=== PATIENT | female | born 2000 | race Two or more races ===

== ENCOUNTER 2020-10-29 14:33 | Emergency (ER) | payer OTHER ==
[~2020-10-29] VITALS: Ht 175.3 cm; Wt 69.6 kg
[2020-10-29 15:30] VITALS: BP 107/71
--- NOTE | 2020-10-29 16:38 | RAD ---
EXAM: Pelvic sonogram. HISTORY: Pelvic pain. TECHNIQUE: Sonographic imaging of the pelvis was performed. COMPARISON: None. FINDINGS: The uterus measures 7.6 x 4.2 x 3.0 cm. The endometrial stripe measures 3 mm in thickness. The ovaries are normal in size and demonstrate normal blood flow. There is no pelvic free fluid. IMPRESSION: Unremarkable pelvic sonogram. Electronically signed by: Rosemary Wyman MD (10/29/2020 4:36 PM) [id number]
--- NOTE | 2020-10-29 16:53 | ED.ADGEN ---
Past Medical History Past Medical History: No Pertinent History Past Surgical History: No Surgical History Smoking Status: Never Smoker Alcohol Use: Occasionally General Adult EDM: Chief Complaint: ABDOMINAL PAIN HPI: HPI: Patient is a 20 year old female coming in for dysuria and suprapubic discomfort. Patient states she was seen at [facility] 5 days ago and diagnosed with urinary tract infection. She was prescribed Bactrim and states she has been compliant the medication but has not had any relief in her symptoms. Denies any bleeding. Has had increased yellowish vaginal discharge. No systemic complaints Review of Systems: Review of Systems: All other systems within normal limits except for as noted in the HPI Allergies: Allergies: Allergies Coded Allergies Type Severity Reaction Last Updated Verified No Known Drug Allergies 10/29/20 No Physical Exam: PE: Constitutional: Well developed, well nourished, no acute distress, non-toxic appearance. [] HENT: Normocephalic, atraumatic, bilateral external ears normal, nose normal. [] Eyes: PERRLA, conjunctiva normal, no discharge. [] Neck: No rigidity, supple, no stridor. [] Cardiovascular: Regular rate and rhythm, brisk cap refill [] Lungs & Thorax: Non labored symmetric respirations, no tachypnea or respiratory distress [] Abdomen: Soft, nondistended lower abdominal tenderness without guarding or rebound. Skin: Warm, dry, no erythema, no rash. [] Back: Unremarkable Extremities: No deformities, range of motion grossly intact, no lower extremity edema [] Neurologic: Alert and oriented X 3, no focal deficits noted. [] Psychologic: Affect normal, judgement normal, mood normal. [] Current Patient Data: Labs: Laboratory Tests Test 10/29/20 15:43 10/29/20 15:46 Urine Collection Type Unknown Urine Color Yellow Urine Clarity Clear Urine pH 6.0 (<5.0-8.0) Urine Specific [place] 1.020 (1.000-1.030) Urine Protein Negative mg/dL (NEG-TRACE) Urine Glucose (UA) Negative mg/dL (NEG) Urine Ketones (Stick) Negative mg/dL (NEG) Urine Blood Negative (NEG) Urine Nitrite Negative (NEG) Urine Bilirubin Negative (NEG) Urine Urobilinogen Dipstick 0.2 mg/dL (0.2 mg/dL) Urine Leukocyte Esterase Negative (NEG) Urine RBC Occ /HPF (0-2) Urine WBC Occ /HPF (0-4) Urine Squamous Epithelial Cells Many /LPF Urine Bacteria Few /HPF (0-FEW) Urine Mucus Slight /LPF POC Urine HCG, Qualitative Hcg negative (Negative) Microbiology 10/29/20 Wet Prep - Final, Complete RUN DATE: 10/29/20 [facility] [employer] [facility] *LIVE* PAGE 1 RUN TIME: 1744 Specimen Inquiry PATIENT: TIMOTHY GRACIA ACCT: [id number] LOC: [facility] U: [id number] AGE/SX: 20/F ROOM: RE10/29/[address]: GIANNA DURAN MD : 2000 BED: DIS: STATUS: DONNY VAUGHN TLOC: SPEC #: [id number] JANET: 10/29/20-1640 STATUS: COMP REQ #: [id number] RECD: 10/29/20-[address] [facility] [address]: GIANNA DURAN MD SOURCE: VAGINAL ENTR: 10/29/20-[address] [facility] [address]: UNKNOWN PCP NAME [facility]: ORDERED: WET PREP COMMENTS: Has specimen been collected/obtained? Y Procedure Result WET PREP Final YEAST NONE SEEN TRICHOMONAS NONE SEEN CLUE CELLS NONE SEEN WBCS FEW RBCS OCCASIONAL SQUAMOUS EPS MANY END OF REPORT Vital Signs: Vital Signs Date Time Temp Pulse Resp B/P (MAP) Pulse Ox O2 Delivery O2 Flow Rate FiO2 10/29/20 15:30 98.8 79 16 107/71 (83) 100 Room Air 98.8 EKG: EKG: [] Heart Score: C/O Chest Pain: No Risk Factors: Risk Factors: DM, Current or recent (<one month) smoker, HTN, HLP, family history of CAD, obesity. Risk Scores: Score 0 - 3: 2.5% MACE over next 6 weeks - Discharge Home Score 4 - 6: 20.3% MACE over next 6 weeks - Admit for Clinical Observation Score 7 - 10: 72.7% MACE over next 6 weeks - Early Invasive Strategies Radiology/Procedures: Radiology/Procedures: [facility] [address] [place] [address] IMAGING REPORT Signed PATIENT: TIMOTHY GRACIA ACCOUNT: [id number] : 2000 LOCATION: ER AGE: 20 SEX: F EXAM STATUS: REG ER ORD. PHYSICIAN: GIANNA DURAN MD REASON: pelvic pain PROCEDURE: PELVIS COMPLETE EXAM: Pelvic sonogram. HISTORY: Pelvic pain. TECHNIQUE: Sonographic imaging of the pelvis was performed. COMPARISON: None. FINDINGS: The uterus measures 7.6 x 4.2 x 3.0 cm. The endometrial stripe measures 3 mm in thickness. The ovaries are normal in size and demonstrate normal blood flow. There is no pelvic free fluid. IMPRESSION: Unremarkable pelvic sonogram. Electronically signed by: Moshe Blackwell MD (10/29/2020 4:36 PM) [id number] DICTATED and SIGNED BY: MOSHE BLAKCWELL MD DATE: 10/29/20 [id number] [] Course & Med Decision Making: Course & Med Decision Making Pertinent Labs and Imaging studies reviewed. (See chart for details) [] Dragon Disclaimer: Dragon Disclaimer: This electronic medical record was generated, in whole or in part, using a voice recognition dictation system. Departure Departure Impression: Primary Impression: Suprapubic discomfort Disposition: HOME / SELF CARE / HOMELESS Condition: STABLE Referrals: UNKNOWN PCP NAME (PCP) Patient Instructions: Pelvic Pain, Female Scripts Phenazopyridine Hcl (PYRIDIUM) 200 Mg Tablet 1 TAB PO TID for urinary discomfort for 3 Days, #9 TAB 0 Refills Prov: GIANNA DURAN MD 10/29/20 GIANNA DURAN MD Oct 29, 2020 16:53
[2020-10-29 17:08] LABS: BILIRUBIN,URINE NEGATIVE (NEG); CLARITY,URINE CLEAR; COLOR,URINE YELLOW; NITRITE,URINE NEGATIVE (NEG); PROTEIN,URINE NEGATIVE (NEG-TRACE); UROBILINOGEN,URINE 0.2 mg/dL (0.2 mg/dL)
[2020-10-29 17:27] LABS: BACTERIA,URINE FEW /HPF (0-FEW)
[2020-10-29 17:29] LABS: RBC,URINE OCC /HPF (0-2); WBC,URINE OCC /HPF (0-4)
[2020-10-29] MEDS ORDERED: PHEN-318 PO (17:47)
[2020-10-30 18:11] LABS: GC PROBE Negative (Negative)
== END 2020-10-29 18:10 | disposition home or self-care (01) ==
LOC: ER 14:33
DX: R10.30 Lower abdominal pain, unspecified (principal); R30.0 Dysuria; N89.8 Other specified noninflammatory disorders of vagina
CPT/HCPCS: 76856; 81001; 81025; 87491; 87591; 99284; Q0111